=== PATIENT | male | born 1995 | race Caucasian/White ===

== ENCOUNTER → 2024-09-27 | Outpatient (REF) | payer OTHER | LOC: M SMT 12:49 | PROVIDERS: ATTEND Urology | DX: Z30.2 Encounter for sterilization (principal) ==

== ENCOUNTER → 2024-11-10 | Outpatient (REF) | payer OTHER ==
[2024-11-10 10:40] LABS: SEMEN APPEARANCE OPAQUE (OPAQUE); SEMEN VISCOSITY LIQUID (LIQUID); SEMEN VOLUME 1.5 ml (2.0-5.0)
[2024-11-10 10:41] LABS: WBC CONCENTRATION >1 M/ml (<=1 M/ml)
== END ==
LOC: M SMT 09:54
PROVIDERS: ATTEND Urology
DX: Z30.2 Encounter for sterilization (principal)